=== PATIENT | female | born 1945 | race Caucasian/White ===

== ENCOUNTER → 2025-05-29 | Day surgery (SDC) | payer MEDICARE, OTHER ==
[~2025-05-29] MED LIST: Dexamethasone 4 MG/ML SDV ONE; Ondansetron 4 MG/2 ML SDV IVPUSH PRN; VANCOmycin 6 MG in Sodium Chloride 0.9% 100 ML IV ONE
[2025-05-29] MEDS: Moxifloxacin 0.5% Ophth Soln 3 ML Bottle EYELF ONE (08:41)
[2025-05-29] MEDS: Povidone-Iodine 5% Sterile Ophth Soln 30 ML Bottle EYELF ONE ×2 (08:42→09:14)
[2025-05-29] MEDS: Phenylephrine 10% Ophth Soln 5 ML Bot EYELF PRN (08:43)
[2025-05-29] MEDS: Timolol Maleate 0.5% Ophth Soln 5 ML Bottle EYELF ONE (08:44)
[2025-05-29] MEDS: Cataract Ophth Solution EYELF ONE (08:44)
[2025-05-29] MEDS: Apraclonidine 0.5% Ophth Soln 5 ML Bot EYELF ONE (09:14)
[2025-05-29] MEDS: Dexamethasone/Neomycin/Polymyxin B Ophth Oint 3.5 GM Tube EYELF ONE (09:15)
[2025-05-29] MEDS: Diclofenac Sodium 0.1% Ophth Soln 5 ML Bottle EYELF ONE (09:15)
[2025-05-29 09:39] VITALS: BP 148/59; PULSE 100
== END | disposition home or self-care (01) ==
LOC: DL.SDS 08:04
PROVIDERS: ATTEND Ophthalmology
DX: H25.813 Combined forms of age-related cataract, bilateral (principal); E78.00 Pure hypercholesterolemia, unspecified; I10 Essential (primary) hypertension; E11.9 Type 2 diabetes mellitus without complications; Z88.5 Allergy status to narcotic agent; Z88.8 Allergy status to other drugs, medicaments and biological substances; Z79.899 Other long term (current) drug therapy; Z87.891 Personal history of nicotine dependence
CPT/HCPCS: 66984; A9270; J2003; J3373; J3490

== ENCOUNTER 2025-06-12 07:45 | Day surgery (SDC) | payer MEDICARE, OTHER ==
[2025-06-12] MEDS ORDERED: Ondansetron 4 MG/2 ML SDV IVPUSH PRN (08:00)
[2025-06-12] MEDS: Povidone-Iodine 5% Sterile Ophth Soln 30 ML Bottle EYERT ONE ×2 (09:29→11:29)
[2025-06-12] MEDS: Moxifloxacin 0.5% Ophth Soln 3 ML Bottle EYERT ONE (09:31)
[2025-06-12] MEDS: Phenylephrine 10% Ophth Soln 5 ML Bot EYERT ONE (09:33)
[2025-06-12] MEDS: Cataract Ophth Solution EYERT ONE (09:34)
[2025-06-12] MEDS: Timolol Maleate 0.5% Ophth Soln 5 ML Bottle EYERT ONE (09:34)
[2025-06-12] MEDS: Apraclonidine 0.5% Ophth Soln 5 ML Bot EYERT ONE (11:30)
[2025-06-12] MEDS: Diclofenac Sodium 0.1% Ophth Soln 5 ML Bottle EYERT ONE (11:31)
[2025-06-12] MEDS: Dexamethasone/Neomycin/Polymyxin B Ophth Oint 3.5 GM Tube EYERT ONE (11:31)
[2025-06-12 12:01] VITALS: PULSE 102
[2025-06-12 12:26] VITALS: BP 145/42
== END 2025-06-12 11:24 | disposition home or self-care (01) ==
LOC: DL.SDS 07:45
PROVIDERS: ATTEND Ophthalmology
DX: E11.36 Type 2 diabetes mellitus with diabetic cataract (principal); H25.811 Combined forms of age-related cataract, right eye; I11.0 Hypertensive heart disease with heart failure; I50.9 Heart failure, unspecified; K21.9 Gastro-esophageal reflux disease without esophagitis; E78.00 Pure hypercholesterolemia, unspecified; Z88.8 Allergy status to other drugs, medicaments and biological substances; Z88.5 Allergy status to narcotic agent; Z79.899 Other long term (current) drug therapy; Z87.891 Personal history of nicotine dependence
CPT/HCPCS: 66984; A9270; J2003; J3373; J3490